=== PATIENT | female | born 1990 | race Two or more races ===

== ENCOUNTER 2019-06-24 08:00 | Inpatient (IN) | payer OTHER ==
[~2019-06-24] VITALS: Ht 162.6 cm; Wt 3.6 kg
[2019-06-24] MEDS ORDERED: PRENATAL TABLE1 EAC3 PO (10:18)
[2019-07-04] MEDS ORDERED: IRON325 MG PO (07:13)
== END 2019-07-07 15:40 | disposition home or self-care (01) | DRG 788 ==
LOC: SURG-SUITE 07-04 06:08 → O/R 07-04 06:08 → OB/GYN 07-04 08:00 → SURG-SUITE 07-04 11:02
PROVIDERS: ADMIT Specialist
PROC: 3E033VJ Introduction of Other Hormone into Peripheral Vein, Percutaneous Approach (ICD-10-PCS; 2019-07-04)
PROC: 4A1HXFZ Monitoring of Products of Conception, Cardiac Rhythm, External Approach (ICD-10-PCS; 2019-07-04)
PROC: 10D00Z1 Extraction of Products of Conception, Low, Open Approach (ICD-10-PCS; principal; 2019-07-04 09:15)
DX: O64.1XX0 Obstructed labor due to breech presentation, not applicable or unspecified (principal); Z3A.39 39 weeks gestation of pregnancy; Z37.0 Single live birth

== ENCOUNTER → 2019-06-28 | Outpatient (CLI) | payer OTHER ==
[~2019-06-28] MED LIST: PRENATAL TABLE1 EAC3 PO
== END | disposition home or self-care (01) ==
LOC: PRENATAL 09:00
DX: O99.213 Obesity complicating pregnancy, third trimester (principal); O36.8131 Decreased fetal movements, third trimester, fetus 1; O26.843 Uterine size-date discrepancy, third trimester; O34.211 Maternal care for low transverse scar from previous cesarean delivery

== ENCOUNTER → 2019-07-01 09:12 | Outpatient (CLI) | payer OTHER ==
[~2019-07-01 09:12] MED LIST changes: +IRON325 MG PO
== END | disposition home or self-care (01) ==
LOC: LAB 09:12
DX: D50.8 Other iron deficiency anemias (principal); D68.8 Other specified coagulation defects